=== PATIENT | male | born 1985 | race Caucasian/White ===

== ENCOUNTER 2020-12-28 12:05 | Emergency (ER) | payer OTHER ==
[~2020-12-28] VITALS: Ht 167.6 cm; Wt 61.2 kg
[2020-12-28 12:11] VITALS: BP 171/105
--- NOTE | 2020-12-28 12:23 | NUR ---
PT AMB TO BED 1. HANDED ON URINE CUP.
--- NOTE | 2020-12-28 12:29 | NUR ---
35 Y/O MALE C/O CHEST PAIN RADIATING TO LEFT ARM , DIARRHEA, NAUSEA, WEAKNESS XTODAY. PT RATES PAIN 5/10 THAT HE DESCRIBES PRESURE LIKE. PT ADMITS TO DRINKING ON SUNDAY AND STATING IT FELT LIKE A HANGOVER BUT NEVER STOPPED. PT ADMITS TO DRINKING DAILY BUT DENIES DRUG USE. PT A/O X4 WITH EVEN AND UNLABORED RESPIRATIONS. PT IN GOWN. BED IN LOWEST POSITION, BRAKES LOCKED, X1 SIDERAIL UP. PMH:HTN, NO MEDS NKDA
--- NOTE | 2020-12-28 12:30 | NUR ---
Tiki wade in [facility] - 12/28/20 at 1440 by [email or web address] EMT AT [facility]
--- NOTE | 2020-12-28 12:30 | NUR ---
EMT AT BEDSIDE FOR EKG
--- NOTE | 2020-12-28 12:32 | NUR ---
NAS KELLER AT BEDSIDE EVALUATING PT
[2020-12-28] MEDS ORDERED: NACL 0.9% 1,000 ML IV ONE (12:40)
[2020-12-28] MEDS ORDERED: ONDANSETRON 4 MG/2 ML VIAL IVP ONE (12:40)
[2020-12-28] MEDS ORDERED: DICYCLOMINE 10 MG CAP PO ONE (12:40)
--- NOTE | 2020-12-28 12:45 | NUR ---
20 G IV ESTABLISHED TO R AC. BLOOD SAMPLE COLLECTED AND GIVEN TO PLASTICS AND COMPOSITES INSPECTOR.
[2020-12-28 13:04] LABS: EOSINOPHILS # (AUTO) 0.1 K/uL (0-0.4)
[2020-12-28 13:13] LABS: BASOPHILS % (AUTO) 0.6 % (0.0-2.0); EOSINOPHILS % (AUTO) 2.9 % (0.0-4.0); HEMATOCRIT 46.5 % (36-52); LYMPHOCYTES # (AUTO) 1.5 K/uL (2.0-11.5); LYMPHOCYTES % (AUTO) 30.8 % (20.5-51.1); MEAN CORPUSCULAR HEMOGLOBIN 32 pg (27-31); MEAN CORPUSCULAR HGB CONC 34 g/dL (33-37); MEAN CORPUSCULAR VOLUME 93.3 fL (80-94); MONOCYTES # (AUTO) 0.7 K/uL (0.8-1.0); MONOCYTES % (AUTO) 13.6 % (1.7-9.3); NEUTROPHILS # (AUTO) 2.6 K/uL (1.8-7.7); NEUTROPHILS % (AUTO) 52.1 % (42.2-75.2); PLATELET COUNT (AUTO) 298 K/uL (140-450); RED BLOOD CELL COUNT(AUTO) 4.98 MIL/uL (4.20-6.10); RED CELL DISTRIBUTION WIDTH 13.4 % (11.6-13.7)
[2020-12-28 13:31] LABS: ALBUMIN 4.3 g/dL (3.4-5.0); ANION GAP 12.2 (8-16); CARBON DIOXIDE 27.8 mmol/L (21-32); TOTAL BILIRUBIN 1.7 mg/dL (0.0-1.0)
--- NOTE | 2020-12-28 13:47 | NUR ---
PT DENIES PAIN AT THIS TIME. EVEN AND UNLABORED RESPIRATIONS NOTED.
[2020-12-28 13:57] LABS: BARBITURATE, URINE NEGATIVE ng/ml (NEG <=200); BENZODIAZEPINE, URINE NEGATIVE ng/mL (NEG <=200)
[2020-12-28 13:58] LABS: CANNABINOID, URINE POSITIVE ng/mL (NEG <=50); COCAINE, URINE NEGATIVE ng/mL (NEG <=300); OPIATE, URINE NEGATIVE ng/mL (NEG <=2000); PHENCYCLIDINE SCREEN,URINE NEGATIVE ng/mL (NEG <=25)
--- NOTE | 2020-12-28 14:45 | NUR ---
Patient discharged with v/s stable. Written and verbal after care instructions ABOUT STIMULANT USE DISORDER- METHAMPHETAMINE USE given and explained. Patient verbalized understanding. Ambulatory with steady gait. All questions addressed prior to discharge. Advised to follow up with PMD.
[2020-12-28 14:50] VITALS: BP 171/105
== END 2020-12-28 14:45 | disposition home or self-care (01) ==
LOC: MED 12:05
DX: F15.90 Other stimulant use, unspecified, uncomplicated (principal)
CPT/HCPCS: 36415; 80053; 80305; 81002; 83690; 85025; 93005; 96361; 96374; 99283; J2405; J7030

== ENCOUNTER 2021-01-05 07:56 | Emergency (ER) | payer OTHER ==
[~2021-01-05] VITALS: Ht 167.6 cm; Wt 59.0 kg
[2021-01-05 08:01] VITALS: BP 136/86
[2021-01-05] MEDS ORDERED: GENT3OIN12 OP (08:38)
[2021-01-05 08:44] VITALS: BP 136/86
== END 2021-01-05 08:45 | disposition home or self-care (01) ==
LOC: MED 07:56
DX: H01.001 Unspecified blepharitis right upper eyelid (principal); I10 Essential (primary) hypertension; F12.10 Cannabis abuse, uncomplicated
CPT/HCPCS: 99283

== ENCOUNTER 2021-10-01 12:21 | Emergency (ER) | payer OTHER ==
[~2021-10-01] VITALS: Ht 170.2 cm; Wt 62.7 kg
[~2021-10-01 12:21] MED LIST: GENT3OIN12 OP
[2021-10-01 12:26] VITALS: BP 143/88
--- NOTE | 2021-10-01 12:33 | NUR ---
PATIENT AMBULATED TO BED 7.
--- NOTE | 2021-10-01 12:35 | NUR ---
PT AMB TO BED 7.
--- NOTE | 2021-10-01 12:39 | NUR ---
Patient BIB by family from home. C/O nause,vomiting and diarrhea x 1 day. Patient reported, was drinking a lot of alcohol (Beer and Tequila) last night and woke up with nausea, vomiting , diarrhea, bileral legs cramping and lower back pain.
[2021-10-01] MEDS ORDERED: ONDANSETRON 4 MG/2 ML VIAL IVP ONE (12:40)
[2021-10-01] MEDS ORDERED: NACL 0.9% 1,000 ML IV ONE (12:40)
--- NOTE | 2021-10-01 13:16 | NUR ---
DR. MCKEON BEDSIDE EVALUATING PT
[2021-10-01] MEDS ORDERED: ONDA8TAB87 PO (13:37)
[2021-10-01] MEDS ORDERED: IBUP-2213 PO (13:37)
--- NOTE | 2021-10-01 14:00 | NUR ---
Patient discharged with v/s stable. Written and verbal after care instructions given and explained. Patient alert, oriented and verbalized understanding of instructions. Ambulatory with steady gait. All questions addressed prior to discharge. ID band removed. Patient advised to follow up with PMD. Rx of ZOFRAN AND IBUPROFEN given. Patient educated on indication of medication including possible reaction and side effects. Opportunity to ask questions provided and answered.
== END 2021-10-01 14:00 | disposition home or self-care (01) ==
LOC: MED 12:21
DX: R11.2 Nausea with vomiting, unspecified (principal); R19.7 Diarrhea, unspecified; R10.13 Epigastric pain; I10 Essential (primary) hypertension; Z79.899 Other long term (current) drug therapy
CPT/HCPCS: 96361; 96374; 99283; J2405; J7030